=== PATIENT | male | born 1965 | race Caucasian/White ===

== ENCOUNTER → 2019-09-04 | Outpatient (CLI) | payer SELFPAY ==
[~2019-09-04] MED LIST: CATHETER FLUSH 10 ML SYR IV PRN
--- NOTE | 2019-09-04 14:57 | Diagnostic Imaging Report ---
INDICATION: Right upper quadrant pain. TECHNIQUE: The patient was administered 5.4 mCi of technetium 99m Choletec intravenously and imaging over the abdomen was performed. At 45 minutes, the patient ingested 8 ounces of Ensure and a gallbladder ejection fraction was calculated. The patient denied discomfort during the exam. FINDINGS: There is homogeneous uptake of activity by the liver with prompt excretion of activity into the common duct and gallbladder. There is normal passage of activity into the small bowel. The gallbladder ejection fraction is 99%. IMPRESSION: 1. Patent cystic duct and common bile duct. 2. The gallbladder ejection fraction is 99%. Dictated by: Dictated on workstation # [id number]
== END ==
LOC: CARD 12:00
PROVIDERS: ATTEND Nurse Practitioner Family
DX: R10.11 Right upper quadrant pain (principal)
CPT/HCPCS: 78227